=== PATIENT | male | born 1970 | race Caucasian/White ===

== ENCOUNTER 2018-08-01 19:20 | Emergency (ER) | payer SELFPAY ==
[2018-08-01] MEDS ORDERED: LIDOCAINE 1% MPF 100MG/10ML STERILE-PAK AMPULE IV ONE (19:38)
[2018-08-01] MEDS ORDERED: CEPHALEXIN 500 MG CAPSULE PO STA (20:04)
--- NOTE | 2018-08-01 20:09 | Emergency Department Record ---
History of Present Illness - General Chief Complaint: Laceration(s) Stated Complaint: LAC ON FINGERS BOTH HANDS Time Seen by Provider: 08/01/18 19:26 Source: Patient Mode of Arrival: Ambulatory Limitations: No limitations - History of Present Illness Initial Commments: The patient cut his R and L 2nd fingers dorsally while trying to string a crossbow. He did suffer a laceration to the dorsal distal 2nd fingers. The patient denies any numbness or tingling but he is having some trouble flexing the L 2nd finger. He has no numbness and his Td is UTD. Onset/Timin -: Minutes(s) Place: Outdoors Context: Accidental Associated Symptoms: None Treatments Prior to Arrival: Bandage - [place] Coma Scale Eye Response: (4) Open spontaneously Motor Response: (6) Obeys commands Verbal Response: (5) Oriented Diana Total: 15 - Related Data Hx Tetanus Toxoid Vaccination: Yes Year of Tetanus Vaccination: 2014 Home Medications Medication Instructions Recorded Confirmed Last Taken Multivitamin [Multiple Vitamins] 1 tab PO DAILY 08/01/18 08/01/18 08/01/18 [place]-3 Fatty Acids/Fish Oil [Fish 1 each PO DAILY 08/01/18 08/01/18 08/01/18 Oil 1,000 mg Capsule] Previous Rx's Medication Instructions Recorded Cephalexin [Keflex] 500 mg PO QID #20 cap 08/01/18 Allergies Allergy/AdvReac Type Severity Reaction Status Date / Time No Known Drug Allergies Allergy Verified 05/26/15 16:27 Travel Screening - Travel/Exposure Within Last 30 Days Have you traveled within the last 30 days?: No - Travel/Exposure Within Last Year Have you traveled outside the [place] in the last year?: No - Additonal Travel Details Have you been exposed to anyone with a communicable illness?: No - Travel Symptoms Symptom Screening: None Review of Systems Constitutional: Denies: Chills, Fever Past Medical History - SOCIAL HISTORY Smoking Status: Never smoker Alcohol Use: None Drug Use: None - RESPIRATORY Hx Respiratory Disorders: No - CARDIOVASCULAR Hx Cardio Disorders: Yes Hx Hypertension: Yes (hx) - NEURO Hx Neuro Disorders: No - GI Hx GI Disorders: No Hx Reflux: No - Hx Genitourinary Disorders: Yes Hx Kidney Stones: Yes - ENDOCRINE Hx Endocrine Disorders: No - MUSCULOSKELETAL Hx Musculoskeletal Disorders: No - PSYCH Hx Psych Problems: No - HEMATOLOGY/ONCOLOGY Hx Hematology/Oncology Disorders: No Family Medical History Any Significant Family History?: Yes Hx Cancer: Grandparents Hx Diabetes: Mother, Grandparents Hx HTN: Grandparents Hx Stroke: Grandparents Physical Exam - General General Appearance: Alert, Cooperative, No acute distress - Head Head exam: Atraumatic, Normocephalic - Extremities Extremities exam: negative: Normal inspection (There is a 1.2 cm lac to the di stal R 2nd finger between the DIP joint and fingernail dorsall. The R 2nd finger has normal sensation and extension. There also is a 1.2 cm lac to the L 2nd finger dorsally between the DIP and PIP joints. There is normal sensation distally and extension is normal. The L 2nd finger has decreased flexion and seems to have a mild boutineire deformity.) Course Vital Signs 08/01/18 19:27 Temperature 97.7 F Pulse Rate 70 Respiratory 20 Rate Blood Pressure 180/120 Pulse Ox 98 - Reevaluation(s) Reevaluation #1: Procedure note: The R and L 2nd finger lacs were anesth. with Lido 1% and cleansed with betadine and sterile saline. Both lacs were not completely thru the dermis and there clearly was no tendon involvement. Both lacs were sutured with 3 4.0 nylon sutures. There were no complications. 08/01/18 20:09 Reevaluation #2: The patient is resting comfortably and he denies any RABAGO or CP or SOB. I did discuss his elevated BP with him and did recommend further evaluation with his PCP. Due to the patient being asymptomatic and the fact that his BP has been elevated each time he has been to the ER over the last few years I do feel the patient is very stable for discharge. He also is to see Dr. Morrison to have the L 2nd finger evaluated further. 08/01/18 20:47 Medical Decision Making - Data Complexity MDM Data: X-Ray Ordered and/or Reviewed - Radiology Data Radiology results: Report reviewed (R and L 2nd fingers: Neg for fx or dislocation.) Disposition Disposition: Discharge Clinical Impression: Laceration of finger Qualifiers: Encounter type: initial encounter Finger: unspecified finger Damage to nail status: with damage Foreign body presence: without foreign body Laterality: unspecified laterality Qualified Code(s): S61.319A - Laceration without foreign body of unspecified finger with damage to nail, initial encounter Disposition: Home, Self-Care Condition: (2) Stable Instructions: Laceration (ED) Additional Instructions: Keep dry for 2 days then no soaking or swimming. Please use Tylenol or Motrin for pain. Please have the sutures removed in 10 days. See your family doctor to have your blood pressure rechecked next week and also see DR. Morrison to have the L 2nd finger evaluated further. Prescriptions: Cephalexin [Keflex] 500 mg PO QID #20 cap Referrals: DEB MORRISON M.D. [MEDICAL DOCTOR] - Forms: Patient Portal Access Time of Disposition: 20:47 Quality - Quality Measures Quality Measures: N/A - Blood Pressure Screening View Details: Yes Does Patient Have Any of the Following: No Blood Pressure Classification: Hypertensive Reading Systolic Measurement: 180 Diastolic Measurement: 120 Screening for High Blood Pressure: < First Hypertensive BP, F/U Documented > [G8950] First Hypertensive Follow-up Interventions: Referral to alternative/primary care provider.
--- NOTE | 2018-08-03 20:30 | RADIOLOGY REPORT ---
EXAM: FINGER(S), LEFT HISTORY: HISTORY OF TRAUMA. TECHNIQUE: Three views of the left fingers are obtained. FINDINGS: There is evidence of dorsal soft tissue injury in the third finger with subcutaneous emphysema. No foreign bodies are seen. There is no evidence of fracture. IMPRESSION: SOFT TISSUE INJURY OF THE INDEX FINGER WITHOUT ACUTE FRACTURE. JOB NUMBER: [id number] MTDD
--- NOTE | 2018-08-03 20:32 | RADIOLOGY REPORT ---
EXAM: FINGER(S), RIGHT HISTORY: HISTORY OF TRAUMA. TECHNIQUE: Three views of the right fingers are obtained. FINDINGS: There is evidence of soft tissue injury but no acute fracture or dislocation. IMPRESSION: SOFT TISSUE INJURY WITHOUT FRACTURE. JOB NUMBER: [id number] MTDD
== END 2018-08-01 20:58 | disposition home or self-care (01) ==
LOC: ER 19:20
DX: S61.310A Laceration without foreign body of right index finger with damage to nail, initial encounter (principal); S61.211A Laceration without foreign body of left index finger without damage to nail, initial encounter; I10 Essential (primary) hypertension; W21.89XA Striking against or struck by other sports equipment, initial encounter; Y92.89 Other specified places as the place of occurrence of the external cause
CPT/HCPCS: 12001; 73140; 99283; J3490

== ENCOUNTER 2018-08-11 17:54 | Emergency (ER) | payer SELFPAY ==
--- NOTE | 2018-08-11 18:12 | Emergency Department Record ---
History of Present Illness - General Chief Complaint: Suture removal Stated Complaint: SUTURE REMOVAL Time Seen by Provider: 08/11/18 18:09 Source: Patient - History of Present Illness Complaint: Suture/staple removal Onset/Timin -: Days(s) Returns Today for: Staple/stitch removal Symptoms Since Prior Visit: No new symptoms - Related Data Previous Rx's Medication Instructions Recorded Cephalexin [Keflex] 500 mg PO QID #20 cap 08/01/18 Allergies Allergy/AdvReac Type Severity Reaction Status Date / Time No Known Drug Allergies Allergy Verified 05/26/15 16:27 Travel Screening - Travel/Exposure Within Last 30 Days Have you traveled within the last 30 days?: No - Travel/Exposure Within Last Year Have you traveled outside the [place] in the last year?: No - Additonal Travel Details Have you been exposed to anyone with a communicable illness?: No - Travel Symptoms Symptom Screening: None Review of Systems Reviewed: No additional complaints except as noted below Constitutional: Reports: As per HPI. Denies: Chills, Fever, Malaise, Night sweats, Weakness, Weight change Eyes: Reports: As per HPI. Denies: Eye discharge, Eye pain, Photophobia, Vision change ENT: Reports: As per HPI. Denies: Congestion, Dental pain, Ear pain, Epistaxis, Hearing loss, Throat pain Respiratory: Reports: As per HPI. Denies: Cough, Dyspnea, Hemoptysis, Stridor, Wheezes Cardiovascular: Reports: As per HPI. Denies: Arrhythmia, Chest pain, Dyspnea on exertion, Edema, Murmurs, Orthopnea, Palpitations, Paroxysmal nocturnal dyspnea, Rheumatic Fever, Syncope Endocrine: Reports: As per HPI. Denies: Fatigue, Heat or cold intolerance, Polydipsia, Polyuria Gastrointestinal: Reports: As per HPI. Denies: Abdominal pain, Constipation, Diarrhea, Hematemesis, Hematochezia, Melena, Nausea, Vomiting Genitourinary: Reports: As per HPI. Denies: Dysuria, Frequency, Hematuria, Incontinence, Retention, Testicular pain, Testicular mass, Urgency Musculoskeletal: Reports: As per HPI. Denies: Arthralgia, Back pain, Gout, Joint swelling, Myalgia, Neck pain Skin: Reports: As per HPI. Denies: Bruising, Change in color, Change in hair/nails, Lesions, Pruritus, Rash Neurological: Reports: As per HPI. Denies: Abnormal gait, Confusion, Headache, Numbness, Paresthesias, Seizure, Tingling, Tremors, Vertigo, Weakness Psychiatric: Reports: As per HPI. Denies: Anxiety, Auditory hallucinations, Depression, Homicidal thoughts, Suicidal thoughts, Visual hallucinations Hematological/Lymphatic: Reports: As per HPI. Denies: Anemia, Blood Clots, Easy bleeding, Easy bruising, Swollen glands Past Medical History - SOCIAL HISTORY Smoking Status: Never smoker Alcohol Use: Occasional Drug Use: None - RESPIRATORY Hx Respiratory Disorders: No - CARDIOVASCULAR Hx Cardio Disorders: Yes Hx Hypertension: Yes (hx) - NEURO Hx Neuro Disorders: No - GI Hx GI Disorders: No Hx Reflux: No - Hx Genitourinary Disorders: Yes Hx Kidney Stones: Yes - ENDOCRINE Hx Endocrine Disorders: No - MUSCULOSKELETAL Hx Musculoskeletal Disorders: No - PSYCH Hx Psych Problems: No - HEMATOLOGY/ONCOLOGY Hx Hematology/Oncology Disorders: No Family Medical History Any Significant Family History?: No Hx Cancer: Grandparents Hx Diabetes: Mother, Grandparents Hx HTN: Grandparents Hx Stroke: Grandparents Physical Exam - General General Appearance: Alert, Oriented x3, Cooperative, No acute distress - Head Head exam: Normal inspection - Eye Eye exam: Normal appearance, PERRL Pupils: Normal accommodation - ENT ENT exam: Normal exam, Mucous membranes moist, Normal external ear exam, Normal orophraynx, TM's normal bilaterally Ear exam: Normal external inspection. negative: External canal tenderness Nasal Exam: Normal inspection. negative: Discharge, Sinus tenderness Mouth exam: Normal external inspection, Tongue normal Teeth exam: Normal inspection. negative: Dental caries Throat exam: Normal inspection. negative: Tonsillar erythema, Tonsillar exudate - Neck Neck exam: Normal inspection, Full ROM. negative: Tenderness - Respiratory Respiratory exam: Normal lung sounds bilaterally. negative: Respiratory distress - Cardiovascular Cardiovascular Exam: Regular rate, Normal rhythm, Normal heart sounds - GI/Abdominal GI/Abdominal exam: Soft, Normal bowel sounds. negative: Tenderness - Rectal Rectal exam: Deferred - exam: Deferred - Extremities Extremities exam: Normal inspection, Full ROM, Normal capillary refill. negative: Tenderness - Back Back exam: Reports: Normal inspection, Full ROM. Denies: Muscle spasm, Rash noted, Tenderness - Neurological Neurological exam: Alert, Normal gait, Oriented X3, Reflexes normal - Psychiatric Psychiatric exam: Normal affect, Normal mood - Skin Skin exam: Dry, Intact, Normal color, Warm Course Vital Signs 08/11/18 18:00 Temperature 98.4 F Pulse Rate 70 Respiratory 16 Rate Blood Pressure 146/100 Pulse Ox 97 - Reevaluation(s) Reevaluation #1: healing nicely without infections 08/11/18 18:11 Disposition Clinical Impression: Visit for suture removal Disposition: Home, Self-Care Condition: (1) Good Instructions: Stitches Removal (ED) Time of Disposition: 18:11 Quality - Quality Measures Quality Measures: N/A - Blood Pressure Screening Does Patient Have Any of the Following: No Blood Pressure Classification: Hypertensive Reading Systolic Measurement: 146 Diastolic Measurement: 100 Screening for High Blood Pressure: < Pre-Hypertensive BP, F/U Documented > [G8950] Pre-Hypertensive Follow-up Interventions: Referral to alternative/primary care provider.
== END 2018-08-11 18:25 | disposition home or self-care (01) ==
LOC: ER 17:54
DX: Z48.02 Encounter for removal of sutures (principal)

== ENCOUNTER 2019-03-26 12:02 | Day surgery (SDC) | payer BC ==
[2019-03-26] MEDS ORDERED: LIDOCAINE 2% MDV (20MG/ML) 20ML VIAL IV ONE (12:03)
[2019-03-26] MEDS ORDERED: PROPOFOL 10 MG/ML VIAL IV ONE (12:03)
--- NOTE | 2019-03-27 10:52 | Operative Note ---
OPERATION: COLONOSCOPY with cold forceps polypectomy. PREOPERATIVE DIAGNOSIS: Family history of questionable colon cancer in a second- degree relative. POSTOPERATIVE DIAGNOSIS: Sigmoid polyp. PREPARATION QUALITY: Good. ESTIMATED BLOOD LOSS: Minimum. SPECIMENS: Sigmoid colon. COMPLICATIONS: None apparent. PROCEDURE: After informed consent was obtained from the patient, he was placed in the left lateral decubitus position in the endoscopy suite, sedated and monitored by the department of anesthesia. Digital rectal exam was unremarkable. A well-lubricated [id number] colonoscope was inserted into the rectum and advanced to the cecum. The cecum, cecal bulb, ileocecal valve, appendiceal orifice, ascending colon, transverse colon, and descending colon were free of inflammatory changes, mass lesions, or polyps. There was a questionable sigmoid colon polyp identified and removed with a cold forceps. The remainder of the sigmoid colon and rectum were unremarkable. J-turn views and forward views of the rectum and anorectum were unrevealing. The endoscope was straightened, the rectal ampulla deflated, and the endoscope was removed. RECOMMENDATIONS: The patient should resume his medications and diet. He will require repeat colonoscopy in 5-10 years pending tissue histology. As always, thank you for allowing me to participate in the healthcare of your patients. VAISHALI
== END 2019-03-26 13:40 | disposition home or self-care (01) ==
LOC: HOP 12:02
PROVIDERS: ATTEND Internal Medicine Gastroenterology
DX: Z12.11 Encounter for screening for malignant neoplasm of colon (principal); D12.5 Benign neoplasm of sigmoid colon; I10 Essential (primary) hypertension